=== PATIENT | female | born 1985 | race African-American/Black ===

== ENCOUNTER 2021-01-09 14:49 | Emergency (ER) | payer SELFPAY ==
[~2021-01-09] VITALS: Ht 165.1 cm; Wt 81.6 kg
[2021-01-09 19:26] VITALS: BP 119/91
== END 2021-01-09 19:45 | disposition home or self-care (01) ==
LOC: ER 14:49
DX: N61.1 Abscess of the breast and nipple (principal); F17.210 Nicotine dependence, cigarettes, uncomplicated

== ENCOUNTER 2021-03-12 10:11 | Emergency (ER) | payer MEDICAID, OTHER ==
[~2021-03-12] VITALS: Ht 165.1 cm; Wt 87.8 kg
[2021-03-12 10:50] VITALS: BP 135/69
== END 2021-03-12 12:22 | disposition home or self-care (01) ==
LOC: ER 10:11
DX: U07.1 COVID-19 (principal); R19.7 Diarrhea, unspecified; F17.210 Nicotine dependence, cigarettes, uncomplicated
CPT/HCPCS: 71045